=== PATIENT | female | born 1970 | race Two or more races ===

== ENCOUNTER 2016-12-04 13:41 | Emergency (ER) | payer SELFPAY ==
[~2016-12-04] VITALS: Ht 157.5 cm; Wt 74.8 kg
[2016-12-04 13:50] VITALS: BP 135/87
[2016-12-04] MEDS ORDERED: NAPR500T PO (14:26)
[2016-12-04] MEDS ORDERED: HYDR-2758 PO (14:26)
[2016-12-04] MEDS ORDERED: CIPR10DR AS (14:26)
[2016-12-04] MEDS ORDERED: ACET15SO6 OT (14:26)
--- NOTE | 2016-12-04 14:26 | PHYS DOC ---
Past Medical History Past Medical History: No Pertinent History Past Surgical History: No Surgical History Alcohol Use: None Drug Use: Marijuana Adult General Chief Complaint Chief Complaint: FACE PROBLEM HPI HPI Is a pleasant 46-year-old female with no major medical problems no prior surgeries who presents with right-sided facial pain radiated from the ear that began about 2 weeks ago. The reason she came in today is that the pain is no longer tolerable. She is attempted to use Tylenol Motrin [id number] to treat the symptoms with no success. She did she's had near infection before several years ago which is seems very similar to. She states describes no jaw claudication, no headaches no rash on her face. She also denies any trauma recent URI symptoms. She does admit that she does take baths and uses Q-tips in her ears. Has noted increasing pain with range of motion of the jaw especially in the mornings when she yawns coming from the ear. She denies any hearing loss , tinnitus, trauma to her ear. She also denies any vertigo, chest pain, shortness breath neck pain or referred pain to her abdomen. Her pain level is approximate 8 of 10 and she is declined narcotics at this time. Review of Systems Review of Systems Constitutional: Denies fever or chills [] Eyes: Denies change in visual acuity, redness, or eye pain any foreign body sensation or loss of visual acuity. HENT: He has had a slight nasal congestion without sore throat. He dental pain other than jaw pain referred from the ear. Respiratory: Denies cough or shortness of breath [] Cardiovascular: No additional information not addressed in HPI [] GI: Denies abdominal pain, nausea, vomiting, bloody stools or diarrhea [] : Denies dysuria or hematuria [] Musculoskeletal: Denies back pain or joint pain [] Integument: Denies rash or skin lesions [] Neurologic: Denies headache, focal weakness or sensory changes [] Endocrine: Denies polyuria or polydipsia [] Allergies Allergies Allergies Coded Allergies Type Severity Reaction Last Updated Verified amoxicillin Allergy Intermediate rash 01/02/14 Yes Physical Exam Physical Exam Vital signs recorded on the chart Constitutional: Well developed, well nourished, no acute distress, non-toxic appearance. [] HENT: Normocephalic, atraumatic, bilateral external ears normal, oropharynx moist, no oral exudates, nose normal. He has significant tenderness to palpation over the tragus on the right. There is erythema and mild swelling with it and edema within the external canal. There is no obstruction cerumen impaction or evidence of otitis media or pharynx is clear there clearly no interstitial issues causing referred pain to the face. Patient has no evidence of gingivitis or dental caries. Eyes: PERRLA, EOMI, conjunctiva normal, no discharge. He has no evidence of discharge or foreign body. There is no rash on the face. [] Neck: Normal range of motion, no tenderness, supple, no stridor. [] Cardiovascular:Heart rate regular rhythm, no murmur [] Lungs & Thorax: Bilateral breath sounds clear to auscultation [] Skin: Warm, dry, no erythema, no rash. [] Neurologic: Alert and oriented X 3, normal motor function, normal sensory function, no focal deficits noted. [] Psychologic: Affect normal, judgement normal, mood normal. [] EKG EKG [] Radiology/Procedures Radiology/Procedures [] Course & Med Decision Making Course & Med Decision Making Pertinent Labs and Imaging studies reviewed. (See chart for details) patient presents with progressive ear pain for last 2 weeks on physical exam is clear the patient has otitis externa in the canal of the right ear. There is no evidence of foreign body, cerumen impaction, dyspnea. Patient has no Bae sign or rash on her face. There is no pain at extraocular movement there is no obvious signs of global swelling patient's culture in fact soft pupils are reactive. Oropharynx is clear with no intensive dental caries or gingival infection there is no evidence of peritonsillar abscess or retropharyngeal abscess on physical exam with no x-rays no tonsillar hypertrophy. Patient's skin is devoid of any strokes skin rash or vesicles. No obvious signs of trauma but she denies being abused. Impression: Otitis externa Will be prescribed Cipro otic Acetic Acid and lortab. My discharge plan Follow up: In addition patient is asked to followup with their primary doctor, within a week for followup examination and to address patient's ongoing medical conditions. Because patient does not have a regular medical doctor, a local physician Resource Sheet will be provided to establish care primary care. Patient is advised that in the Emergency Department primary complaints are addressed and only in light of known signs and symptoms. Patient should return immediately to the emergency department if new signs and symptoms develop or patient's condition worsens in any way. At time of discharge patient was in stable condition and had verbalized understanding of the discharge instructions. [] Dragon Disclaimer Dragon Disclaimer This electronic medical record was generated, in whole or in part, using a voice recognition dictation system. Departure Departure Impression: Primary Impression: Otitis externa Additional Impression: Anxiety Disposition: 01 HOME, SELF-CARE Condition: IMPROVED Referrals: NO PCP (PCP) Patient Instructions: Otitis Externa Additional Instructions: My discharge plan Follow up: In addition patient is asked to followup with their primary doctor, within a week for followup examination and to address patient's ongoing medical conditions. Because patient does not have a regular medical doctor, a local physician Resource Sheet will be provided to establish care primary care. Patient is advised that in the Emergency Department primary complaints are addressed and only in light of known signs and symptoms. Patient should return immediately to the emergency department if new signs and symptoms develop or patient's condition worsens in any way. At time of discharge patient was in stable condition and had verbalized understanding of the discharge instructions. Scripts Acetic Acid (ACETIC ACID) 15 Ml Solution 15 ML OT TID for 7 Days, MISC Prov: ARIANNA GARCIA MD 12/04/16 Ciprofloxacin/Hydrocortisone (CIPRO HC OTIC SUSPENSION) 10 Ml Drops.susp 3 DROP BID, #10 ML Prov: ARIANNA GARCIA MD 12/04/16 Naproxen (NAPROSYN) 500 Mg Tablet 1 TAB PO BID, #14 TAB 1 Refill Prov: ARIANNA GARCIA MD 12/04/16 Hydrocodone Bit/Acetaminophen (HYDROCODONE-APAP 5-325 ) 1 Each Tablet 1-2 TAB PO PRN Q6HRS Y for PAIN for 5 Days, #10 TAB 0 Refills Prov: ARIANNA GARCIA MD 12/04/16 Problem Qualifiers ARIANNA GARCIA MD Dec 04, 2016 14:26
== END 2016-12-04 14:42 | disposition home or self-care (01) ==
LOC: ER 13:41
DX: H60.91 Unspecified otitis externa, right ear (principal); F41.9 Anxiety disorder, unspecified; Z88.1 Allergy status to other antibiotic agents
CPT/HCPCS: 99283

== ENCOUNTER 2019-11-22 05:51 | Emergency (ER) | payer SELFPAY ==
[~2019-11-22] VITALS: Ht 157.5 cm; Wt 76.3 kg
[~2019-11-22 05:51] MED LIST: ACET15SO6 OT; CIPR10DR AS; HYDR-2761 PO; NAPR-683 PO
[2019-11-22 06:24] LABS: BASO # 0.1 x10^3/uL (0.0-0.2); BASO % 1 % (0-3); EOS # 0.7 x10^3/uL (0.0-0.7); EOS % 7 % (0-3); HEMATOCRIT 48.6 % (36.0-47.0); HEMOGLOBIN 16.9 g/dL (12.0-15.5); LYMPH # 4.3 x10^3/uL (1.0-4.8); LYMPH % 45 % (24-48); MEAN CORPUSCULAR HEMOGLOBIN 31 pg (25-35); MEAN CORPUSCULAR HGB CONC 35 g/dL (31-37); MEAN CORPUSCULAR VOLUME 88 fL (79-100); MONO # 0.8 x10^3/uL (0.0-1.1); MONO % 8 % (0-9); NEUT # 3.8 x10^3/uL (1.8-7.7); NEUT % 39 % (31-73); PLATELET COUNT 291 x10^3/uL (140-400); RED BLOOD COUNT 5.52 x10^6/uL (3.50-5.40); RED CELL DISTRIBUTION WIDTH 14.6 % (11.5-14.5); WHITE BLOOD COUNT 9.6 x10^3/uL (4.0-11.0)
[2019-11-22] MEDS ORDERED: IPRATRPIUM/ALBUTEROL 0.5/2.5MG 3 ML NEBU. NEB ONE ×2 (06:30→07:45)
[2019-11-22] MEDS ORDERED: methylPREDNISolone SOD SUCC PF 125 MG/2 ML VIAL. IV ONE (06:30)
[2019-11-22 06:42] LABS: CALCIUM 9.4 mg/dL (8.5-10.1); CREATININE 0.7 mg/dL (0.6-1.0); GFR 89.3
[2019-11-22 06:48] LABS: ALBUMIN 3.9 g/dL (3.4-5.0); MAGNESIUM 2.3 mg/dL (1.8-2.4); TOTAL BILIRUBIN 0.3 mg/dL (0.2-1.0); TOTAL PROTEIN 7.8 g/dL (6.4-8.2)
--- NOTE | 2019-11-22 06:59 | RAD ---
AP chest x-ray HISTORY: Shortness of breath. FINDINGS: Heart size normal. Mediastinal silhouette is normal. No pneumothorax, pulmonary opacities or pleural effusions. Bones are unremarkable. IMPRESSION: No acute process. Electronically signed by: David Ochoa MD (11/22/2019 6:56 AM) [facility]
--- NOTE | 2019-11-22 07:03 | PHYS DOC ---
Past Medical History Past Medical History: Asthma Past Surgical History: No Surgical History Smoking Status: Current Every Day Smoker Alcohol Use: Occasionally Drug Use: None General Adult EDM: Chief Complaint: SHORTNESS OF BREATH HPI: HPI: Patient is a 49 year old female who presented to ER for evaluation of trouble breathing since yesterday. Patient states she is wheezing a lot. Patient has history of asthma when she was young. Patient denies any cough or fever, denies being exposed to anybody who tested positive for COVID-19. Patient is a smoker, he is not on oxygen at home. Patient has a nebulizer machine at home but she ran out of her nebulizer solution. Patient denies any chest pain. Review of Systems: Review of Systems: Constitutional: Denies fever or chills. [] Eyes: Denies change in visual acuity. [] HENT: Denies nasal congestion or sore throat. [] Respiratory: Denies any cough, positive for wheezing and trouble breathing. Cardiovascular: Denies chest pain or edema. [] GI: Denies abdominal pain, nausea, vomiting, bloody stools or diarrhea. [] : Denies dysuria. [] Musculoskeletal: Denies back pain or joint pain. [] Integument: Denies rash. [] Neurologic: Denies headache, focal weakness or sensory changes. [] Endocrine: Denies polyuria or polydipsia. [] Lymphatic: Denies swollen glands. [] Psychiatric: Denies depression or anxiety. [] Heart Score: Risk Factors: Risk Factors: DM, Current or recent (<one month) smoker, HTN, HLP, family history of CAD, obesity. Risk Scores: Score 0 - 3: 2.5% MACE over next 6 weeks - Discharge Home Score 4 - 6: 20.3% MACE over next 6 weeks - Admit for Clinical Observation Score 7 - 10: 72.7% MACE over next 6 weeks - Early Invasive Strategies Current Medications: Current Medications Medications (Trade) Dose Ordered Sig/Chay Start Time Stop Time Status Last Admin Dose Admin Albuterol/ Ipratropium (Duoneb) 3 ml 1X ONCE 11/22/19 06:30 11/22/19 06:31 DC 11/22/19 06:30 3 ML Methylprednisolone Sodium Succinate (SOLU-Medrol 125MG VIAL) 125 mg 1X ONCE 11/22/19 06:30 11/22/19 06:31 DC 10/6/20 06:28 125 MG Allergies: Allergies: Allergies Coded Allergies Type Severity Reaction Last Updated Verified amoxicillin Allergy Intermediate rash 01/02/14 Yes Physical Exam: PE: Constitutional: Well developed, well nourished, no acute distress, non-toxic appearance. [] HENT: Normocephalic, atraumatic, bilateral external ears normal, oropharynx moist, no oral exudates, nose normal. [] Eyes: PERRLA, EOMI, conjunctiva normal, no discharge. [] Neck: Normal range of motion, no tenderness, supple, no stridor. [] Cardiovascular:Heart rate regular rhythm, no murmur [] Lungs & Thorax: Diffuse expiratory and inspiratory wheezing, no respiratory dis tress. Abdomen: Bowel sounds normal, soft, no tenderness, no masses, no pulsatile masses. [] Skin: Warm, dry, no erythema, no rash. [] Back: No tenderness, no CVA tenderness. [] Extremities: No tenderness, no cyanosis, no clubbing, ROM intact, no edema. [] Neurologic: Alert and oriented X 3, normal motor function, normal sensory function, no focal deficits noted. [] Psychologic: Affect normal, judgement normal, mood normal. [] Current Patient Data: Labs: Laboratory Tests Test 11/22/19 06:10 White Blood Count 9.6 x10^3/uL (4.0-11.0) Red Blood Count 5.52 x10^6/uL (3.50-5.40) H Hemoglobin 16.9 g/dL (12.0-15.5) H Hematocrit 48.6 % (36.0-47.0) H Mean Corpuscular Volume 88 fL (79-100) Mean Corpuscular Hemoglobin 31 pg (25-35) Mean Corpuscular Hemoglobin Concent 35 g/dL (31-37) Red Cell Distribution Width 14.6 % (11.5-14.5) H Platelet Count 291 x10^3/uL (140-400) Neutrophils (%) (Auto) 39 % (31-73) Lymphocytes (%) (Auto) 45 % (24-48) Monocytes (%) (Auto) 8 % (0-9) Eosinophils (%) (Auto) 7 % (0-3) H Basophils (%) (Auto) 1 % (0-3) Neutrophils # (Auto) 3.8 x10^3/uL (1.8-7.7) Lymphocytes # (Auto) 4.3 x10^3/uL (1.0-4.8) Monocytes # (Auto) 0.8 x10^3/uL (0.0-1.1) Eosinophils # (Auto) 0.7 x10^3/uL (0.0-0.7) Basophils # (Auto) 0.1 x10^3/uL (0.0-0.2) Sodium Level 139 mmol/L (136-145) Potassium Level 4.0 mmol/L (3.5-5.1) Chloride Level 103 mmol/L (98-107) Carbon Dioxide Level 28 mmol/L (21-32) Anion Gap 8 (6-14) Blood Urea Nitrogen 13 mg/dL (7-20) Creatinine 0.7 mg/dL (0.6-1.0) Estimated GFR (Cockcroft-Gault) 89.3 BUN/Creatinine Ratio 19 (6-20) Glucose Level 111 mg/dL (70-99) H Calcium Level 9.4 mg/dL (8.5-10.1) Magnesium Level 2.3 mg/dL (1.8-2.4) Total Bilirubin 0.3 mg/dL (0.2-1.0) Aspartate Amino Transferase (AST) 20 U/L (15-37) Alanine Aminotransferase (ALT) 25 U/L (14-59) Alkaline Phosphatase 65 U/L (46-116) Troponin I Quantitative < 0.017 ng/mL (0.000-0.055) Total Protein 7.8 g/dL (6.4-8.2) Albumin 3.9 g/dL (3.4-5.0) Albumin/Globulin Ratio 1.0 (1.0-1.7) Laboratory Tests 11/22/19 06:10 Laboratory Tests 11/22/19 06:10 Vital Signs: Vital Signs Date Time Temp Pulse Resp B/P (MAP) Pulse Ox O2 Delivery O2 Flow Rate FiO2 11/22/19 06:42 98.1 98 24 149/85 (106) 95 Nasal Cannula 2.0 98.1 EKG: EKG: EKG was done at 617, heart rate 83 bpm, sinus rhythm, no ST segment elevation. Radiology/Procedures: Radiology/Procedures: [][facility] [address] [place] [address] IMAGING REPORT Signed PATIENT: KYLEIGH MCDONNELL ACCOUNT: [id number] : 1970 LOCATION: ER AGE: 49 SEX: F EXAM STATUS: REG ER ORD. PHYSICIAN: TAY LI DO REASON: soa PROCEDURE: CHEST AP ONLY AP chest x-ray HISTORY: Shortness of breath. FINDINGS: Heart size normal. Mediastinal silhouette is normal. No pneumothorax, pulmonary opacities or pleural effusions. Bones are unremarkable. IMPRESSION: No acute process. Electronically signed by: Tammy Ochoa MD (11/22/2019 6:56 AM) [facility] [place] DICTATED and SIGNED BY: TAMMY OCHOA MD DATE: 11/22/19 0656 Course & Med Decision Making: Course & Med Decision Making Pertinent Labs and Imaging studies reviewed. (See chart for details) Patient is a 49-year-old female who was evaluated in ER due to wheezing and trouble breathing. Patient has a acute asthmatic bronchitis. She will given treatment in the ER, she feels much better. Patient will be discharged home. Advised stop smoking Hemant Disclaimer: Hemant Disclaimer: This electronic medical record was generated, in whole or in part, using a voice recognition dictation system. Departure Departure Impression: Primary Impression: Bronchitis with asthma, acute Disposition: 01 HOME, SELF-CARE Condition: IMPROVED Referrals: NO PCP (PCP) PLEASE FOLLOW UP WITH YOUR DOCTOR THIS WEEK Patient Instructions: Acute Bronchitis, Asthma, Acute Bronchospasm Additional Instructions: Thank you for visiting our Emergency Department. We appreciate you trusting us with your care. If any additional problems come up don't hesitate to return to visit us. Please follow up with your primary care provider so they can plan additional care if needed and know about the problem that you had. If symptoms worsen come back to the Emergency Department. Any concerning symptoms that start such as chest pain, shortness of air, weakness or numbness on one side of the body, running high fevers or any other concerning symptoms return to the ER. Scripts Prednisone (PREDNISONE) 20 Mg Tablet 1 TAB PO DAILY for 10 Days, #10 TAB Prov: TAY LI DO 11/22/19 Azithromycin (ZITHROMAX) 250 Mg Tablet 1 PKG PO UD, #6 TAB Prov: TAY LI DO 11/22/19 Albuterol Sulfate (PROAIR HFA INHALER) 8.5 Gm Hfa.aer.ad 2 PUFF IH PRN Q4-6HRS PRN for wheezing for 21 Days, #1 INHALER 0 Refills Prov: TAY LI DO 11/22/19 Albuterol Sulfate (ALBUTEROL SULFATE CONC NEB SOLN) 2.5 Mg/0.5 Ml Vial.neb 1 VIAL NEB Q4HRS PRN for SHORTNESS OF BREATH, #60 VIAL 1 Refill Prov: TAY LI DO 11/22/19 TAY LI DO Nov 22, 2019 07:03
[2019-11-22] MEDS ORDERED: EPINEPHrine 1 MG/ML VIAL SQ ONE (09:00)
[2019-11-22] MEDS ORDERED: AZIT250T PO (11:07)
[2019-11-22] MEDS ORDERED: PRED20TA PO (11:07)
[2019-11-22] MEDS ORDERED: ALBU2.5V14 NEB (11:07)
[2019-11-22] MEDS ORDERED: ALBU2.5V8 IH (11:07)
[2019-11-22 11:15] VITALS: BP 116/59
--- NOTE | 2019-11-23 15:25 | EKG ---
[facility] [address] [place] [address] Test Date: 2019-11-22 Test Time: 06:17:35 Pat Name: KYLEIGH MCDONNELL Department: Room: Gender: F [employer]: : 1970 Requested By: TAY LI Order Number: [id number] Reading MD: Measurements Intervals [place] Rate: 83 P: 47 DC: 162 QRS: 69 QRSD: 84 T: 36 QT: 368 QTc: 438 Interpretive Statements SINUS RHYTHM NO SPECIFIC ECG ABNORMALITIES RI6.01 No previous ECG available for comparison
== END 2019-11-22 11:31 | disposition home or self-care (01) ==
LOC: ER 05:51
DX: J45.909 Unspecified asthma, uncomplicated (principal); F17.200 Nicotine dependence, unspecified, uncomplicated; Z88.1 Allergy status to other antibiotic agents
CPT/HCPCS: 36415; 71045; 80053; 83735; 84484; 85025; 93005; 94640; 96372; 96374; 99285; J0171; J2930

== ENCOUNTER 2020-11-08 07:26 | Emergency (ER) | payer SELFPAY ==
[~2020-11-08] VITALS: Ht 157.5 cm; Wt 68.1 kg
[~2020-11-08 07:26] MED LIST changes: +ALBU2.5V14 NEB; +ALBU2.5V8 IH; +AZIT250T PO; +PRED20TA PO
--- NOTE | 2020-11-08 07:38 | ED.ADGEN ---
Past Medical History Past Medical History: Asthma Past Surgical History: No Surgical History Smoking Status: Current Every Day Smoker Alcohol Use: Occasionally Drug Use: None General Adult EDM: Chief Complaint: ASTHMA HPI: HPI: Patient is a 50-year-old female who arrives ambulatory to the emergency department complaining of an asthma attack. Patient reports she has developed asthma later in life from her years of smoking. Patient reports over the past 2 days she has developed aggressive difficulty breathing and states today her breathing is much worse than it was yesterday. Patient states she can hear herself wheezing. Despite her difficulty breathing, the patient denies any history of chest pain, fever or known sick contacts. Patient states she has not had the coronavirus vaccines. She denies any symptoms otherwise. She is awake, alert and in mild respiratory distress. Review of Systems: Review of Systems: Constitutional: Denies fever or chills. [] Eyes: Denies change in visual acuity. [] HENT: Denies nasal congestion or sore throat. [] Respiratory: Reports shortness of breath with wheezing. [] Cardiovascular: Denies chest pain or edema. [] GI: Denies abdominal pain, nausea, vomiting, bloody stools or diarrhea. [] : Denies dysuria. [] Musculoskeletal: Denies back pain or joint pain. [] Integument: Denies rash. [] Neurologic: Denies headache, focal weakness or sensory changes. [] Endocrine: Denies polyuria or polydipsia. [] Lymphatic: Denies swollen glands. [] Psychiatric: Denies depression or anxiety. [] Current Medications: Current Medications Medications (Trade) Dose Ordered Sig/Chay Start Time Stop Time Status Last Admin Dose Admin Albuterol/ Ipratropium (Duoneb) 3 ml 1X ONCE 11/08/20 08:45 11/08/20 08:46 DC 11/08/20 08:50 3 ML Methylprednisolone Sodium Succinate (SOLU-Medrol 125MG VIAL) 125 mg 1X ONCE 11/08/20 07:45 11/08/20 07:46 DC 11/08/20 07:53 125 MG Sodium Chloride 1,000 ml @ 1,000 mls/hr Q1H 11/08/20 07:45 11/08/20 08:44 DC 11/08/20 08:22 1,000 MLS/HR Allergies: Allergies: Allergies Coded Allergies Type Severity Reaction Last Updated Verified amoxicillin Allergy Intermediate rash 01/02/14 Yes Physical Exam: PE: Constitutional: Patient is uncomfortable appearing. Well developed, well nourished, non-toxic appearance. [] HENT: Normocephalic, atraumatic, bilateral external ears normal, oropharynx moist, no oral exudates, nose normal. [] Eyes: PERRLA, EOMI, conjunctiva normal, no discharge. [] Neck: Normal range of motion, no tenderness, supple, no stridor. [] Cardiovascular:Heart rate regular rhythm, no murmur [] Lungs & Thorax: Patient is in mild respiratory distress with expiratory wheezes bilaterally. [] Abdomen: Bowel sounds normal, soft, no tenderness, no masses, no pulsatile masses. [] Skin: Warm, dry, no erythema, no rash. [] Back: No tenderness, no CVA tenderness. [] Extremities: No tenderness, no cyanosis, no clubbing, ROM intact, no edema. [] Neurologic: Alert and oriented X 3, normal motor function, normal sensory function, no focal deficits noted. [] Psychologic: Affect normal, judgement normal, mood normal. [] Current Patient Data: Labs: Laboratory Tests Test 11/08/20 07:45 11/08/20 07:55 Influenza Type A Antigen Negative (NEGATIVE) Influenza Type B Antigen Negative (NEGATIVE) White Blood Count 7.5 x10^3/uL (4.0-11.0) Red Blood Count 5.27 x10^6/uL (3.50-5.40) Hemoglobin 16.0 g/dL (12.0-15.5) H Hematocrit 46.2 % (36.0-47.0) Mean Corpuscular Volume 88 fL (79-100) Mean Corpuscular Hemoglobin 30 pg (25-35) Mean Corpuscular Hemoglobin Concent 35 g/dL (31-37) Red Cell Distribution Width 14.9 % (11.5-14.5) H Platelet Count 309 x10^3/uL (140-400) Neutrophils (%) (Auto) 48 % (31-73) Lymphocytes (%) (Auto) 37 % (24-48) Monocytes (%) (Auto) 10 % (0-9) H Eosinophils (%) (Auto) 5 % (0-3) H Basophils (%) (Auto) 1 % (0-3) Neutrophils # (Auto) 3.6 x10^3/uL (1.8-7.7) Lymphocytes # (Auto) 2.8 x10^3/uL (1.0-4.8) Monocytes # (Auto) 0.7 x10^3/uL (0.0-1.1) Eosinophils # (Auto) 0.4 x10^3/uL (0.0-0.7) Basophils # (Auto) 0.1 x10^3/uL (0.0-0.2) Sodium Level 139 mmol/L (136-145) Potassium Level 3.8 mmol/L (3.5-5.1) Chloride Level 102 mmol/L (98-107) Carbon Dioxide Level 25 mmol/L (21-32) Anion Gap 12 (6-14) Blood Urea Nitrogen 9 mg/dL (7-20) Creatinine 0.6 mg/dL (0.6-1.0) Estimated GFR (Cockcroft-Gault) 106.3 BUN/Creatinine Ratio 15 (6-20) Glucose Level 102 mg/dL (70-99) H Calcium Level 9.2 mg/dL (8.5-10.1) Total Bilirubin 0.4 mg/dL (0.2-1.0) Aspartate Amino Transferase (AST) 17 U/L (15-37) Alanine Aminotransferase (ALT) 28 U/L (14-59) Alkaline Phosphatase 68 U/L (46-116) Troponin I Quantitative < 0.017 ng/mL (0.000-0.055) GJ-Jbl-I-Type Natriuretic Peptide 47 pg/mL (0-124) Total Protein 7.9 g/dL (6.4-8.2) Albumin 3.8 g/dL (3.4-5.0) Albumin/Globulin Ratio 0.9 (1.0-1.7) L Laboratory Tests 11/08/20 07:55 Laboratory Tests 11/08/20 07:55 Vital Signs: Vital Signs Date Time Temp Pulse Resp B/P (MAP) Pulse Ox O2 Delivery O2 Flow Rate FiO2 11/08/20 08:50 97 Room Air 11/08/20 08:30 88 20 155/91 (112) 11/08/20 07:34 97.7 97.7 EKG: EKG: EKG was obtained at 7:47 AM and revealed a sinus rhythm with a ventricular rate of 76 bpm. There are no acute ST/T wave changes to denote ischemia. [] Heart Score: C/O Chest Pain: No HEART Score for Chest Pain: HEART Score for Chest Pain Response (Comments) Value History Slighlty/Non-Suspicious 0 ECG Normal 0 Age >45 - < 65 1 Risk Factors 1 or 2 Risk Factors 1 Troponin < Normal Limit 0 Total 2 Risk Factors: Risk Factors: DM, Current or recent (<one month) smoker, HTN, HLP, family history of CAD, obesity. Risk Scores: Score 0 - 3: 2.5% MACE over next 6 weeks - Discharge Home Score 4 - 6: 20.3% MACE over next 6 weeks - Admit for Clinical Observation Score 7 - 10: 72.7% MACE over next 6 weeks - Early Invasive Strategies Radiology/Procedures: Radiology/Procedures: [] Impression: [facility] [address] [facility] [place], [place] [id number] IMAGING REPORT Signed PATIENT: KYLEIGH MCDONNELL ACCOUNT: [id number] : 1970 LOCATION: ER AGE: 50 SEX: F EXAM STATUS: REG ER ORD. PHYSICIAN: BELLA DELEON DO REASON: SOA PROCEDURE: PORTABLE CHEST 1V XR CHEST 1V History: Reason: SOA / Spl. Instructions: / History: Comparison: November 22, 2019 Findings: No consolidation or pleural effusion. Normal heart size. No pneumothorax. Impression: 1. No acute cardiopulmonary process. Electronically signed by: James Caro DO (11/08/2020 8:10 AM) [id number] DICTATED and SIGNED BY: JAMES CARO DO DATE: 11/08/20 [id number] Course & Med Decision Making: Course & Med Decision Making Pertinent Labs and Imaging studies reviewed. The patient remains awake, alert and still demonstrates some difficulty breathing however she is significantly improved since her arrival. After speaking with the patient in great detail, it is very clear the patient does not have any ongoing strategy for managing her asthma let alone have any regular primary care follow-up. I do not believe the patient warrants admission to the hospital however she has been advised to quarantine until her Covid results are returned. I have advised her as well to rest over the next several days and take her medications as prescribed. Should she develop any new chest pain, fevers or increased difficulty breathing, she has been advised to return to the emergency department. The patient understands and has agreed to do so. She is nontoxic-appearing and stable for discharge. Hemant Disclaimer: Hemant Disclaimer: This electronic medical record was generated, in whole or in part, using a voice recognition dictation system. Departure Departure Impression: Primary Impression: Asthma exacerbation Additional Impression: Person under investigation for COVID-19 Disposition: HOME / SELF CARE / HOMELESS Condition: IMPROVED Referrals: NO PCP (PCP) Patient Instructions: Asthma Attacks, Prevention, Asthma, Adult Additional Instructions: Please return to the hospital with any new fevers or chest pain in addition to increased difficulty breathing. Scripts Albuterol Sulfate (PROAIR HFA INHALER) 8.5 Gm Hfa.aer.ad 2 PUFF IH PRN Q4-6HRS PRN for wheezing for 21 Days, #1 INHALER 0 Refills Prov: BELLA DELEON DO 11/08/20 Prednisone (PREDNISONE) 50 Mg Tablet 1 TAB PO DAILY, #5 TAB Prov: BELLA DELEON DO 11/08/20 Problem Qualifiers BELLA DELEON DO Nov 08, 2020 07:38
[2020-11-08] MEDS ORDERED: IV NORMAL SALINE 1000ML BAG 1,000 ML IV SCH (07:45)
[2020-11-08] MEDS ORDERED: IPRATRPIUM/ALBUTEROL 0.5/2.5MG 3 ML NEBU. NEB ONE ×2 (07:45→08:45)
[2020-11-08] MEDS ORDERED: methylPREDNISolone SOD SUCC PF 125 MG/2 ML VIAL. IV ONE (07:45)
--- NOTE | 2020-11-08 08:12 | RAD ---
XR CHEST 1V History: Reason: SOA / Spl. Instructions: / History: Comparison: November 22, 2019 Findings: No consolidation or pleural effusion. Normal heart size. No pneumothorax. Impression: 1. No acute cardiopulmonary process. Electronically signed by: James Marcus DO (11/08/2020 8:10 AM) [id number]
[2020-11-08 08:18] LABS: INFLUENZA A PATIENT NEGATIVE (NEGATIVE); INFLUENZA B PATIENT NEGATIVE (NEGATIVE)
[2020-11-08 08:19] LABS: BASO # 0.1 x10^3/uL (0.0-0.2); BASO % 1 % (0-3); EOS # 0.4 x10^3/uL (0.0-0.7); EOS % 5 % (0-3); HEMATOCRIT 46.2 % (36.0-47.0); LYMPH # 2.8 x10^3/uL (1.0-4.8); LYMPH % 37 % (24-48); MEAN CORPUSCULAR HEMOGLOBIN 30 pg (25-35); MEAN CORPUSCULAR HGB CONC 35 g/dL (31-37); MEAN CORPUSCULAR VOLUME 88 fL (79-100); MONO # 0.7 x10^3/uL (0.0-1.1); MONO % 10 % (0-9); NEUT # 3.6 x10^3/uL (1.8-7.7); NEUT % 48 % (31-73); PLATELET COUNT 309 x10^3/uL (140-400); RED BLOOD COUNT 5.27 x10^6/uL (3.50-5.40); RED CELL DISTRIBUTION WIDTH 14.9 % (11.5-14.5); WHITE BLOOD COUNT 7.5 x10^3/uL (4.0-11.0)
[2020-11-08 08:22] LABS: CALCIUM 9.2 mg/dL (8.5-10.1); CREATININE 0.6 mg/dL (0.6-1.0); GFR 106.3; POTASSIUM 3.8 mmol/L (3.5-5.1)
[2020-11-08 08:28] LABS: ALBUMIN 3.8 g/dL (3.4-5.0); ALBUMIN/GLOBULIN RATIO 0.9 (1.0-1.7); TOTAL BILIRUBIN 0.4 mg/dL (0.2-1.0); TOTAL PROTEIN 7.9 g/dL (6.4-8.2)
[2020-11-08 08:30] VITALS: BP 155/91
[2020-11-08] MEDS ORDERED: ALBU2.5V8 IH (08:43)
[2020-11-08] MEDS ORDERED: PRED50TA PO (08:43)
--- NOTE | 2020-11-08 16:53 | NUR ---
IP: Patient notified of negative COVID19 test result. Verbalized understanding.
== END 2020-11-08 09:11 | disposition home or self-care (01) ==
LOC: ER 07:26
DX: J45.901 Unspecified asthma with (acute) exacerbation (principal); F17.200 Nicotine dependence, unspecified, uncomplicated; Z20.822 Contact with and (suspected) exposure to COVID-19; Z88.1 Allergy status to other antibiotic agents
CPT/HCPCS: 36415; 71045; 80053; 83880; 84484; 85025; 87804; 93005; 94640; 96361; 96374; 99285; J2930; J7030; U0003; U0005